=== PATIENT | female | born 1960 ===

== ENCOUNTER 2022-12-18 10:32 | Day surgery (SDC) | payer BC, SELFPAY ==
[2022-12-18] VITALS (14 sets, daily range): BP systolic 108–128; BP diastolic 69–78; PULSE 62–72; RESP 16; TEMP 36.2–36.6; O2SAT 93–100; BMI 28.3
--- NOTE | 2022-12-18 11:08 | W.ANESCHARGE ---
Anesthesia Charges Start Date/Time Anesthesia Start Date: 12/18/22 Anesthesia Start Time: 12:11 Stop Date/Time Anesthesia Stop Date: 12/18/22 Anesthesia Stop Time: 13:13
[2022-12-18] MEDS: OXYMETAZOLINE 0.05% NASAL SPRAY 2 SPRAY NOSTRIL-B (11:17)
[2022-12-18] MEDS: LACTATED RINGERS 1000 ML 1,000 ML 100 ML IV (11:23)
[2022-12-18] MEDS: SODIUM CHLORIDE 0.9 % (FLUSH) 10 ML SYRINGE IVF (11:24)
[2022-12-18] MEDS: COCAINE HCL 4 % 4 ML SOLUTION NOSTRIL-B (12:25)
[2022-12-18] MEDS: BUPIVACAINE 0.5%/EPINEPHRINE 0.9 MG (30.9 ML) INJECTION (12:25)
[2022-12-18] MEDS: AYR SALINE NASAL GEL 1 APPLIC NOSTRIL-B (12:41)
[2022-12-18] MEDS: MUPIROCIN 1 GM PACKET 1 APPLIC TOPICAL (12:57)
--- NOTE | 2022-12-18 13:05 | W.PM.ENTPROC ---
Procedure Note Date of procedure: 12/18/22 Procedure: Preoperative diagnosis subcutaneous left nasal dorsal lesion probable cyst, nasal obstruction, deviated septum, inferior turbinate hypertrophy Postoperative diagnosis same Procedure excision nasal dorsal subcutaneous lesion with layered closure (excision length 1.3 cm), septoplasty, submucous partial resection inferior turbinates Under general endotracheal anesthesia patient was prepped and draped in usual fashion. The nasal dorsal lesion of an marked preoperatively. This was then prepped and draped. The area surrounding lesion was injected with a total of 1 mL of 1% lidocaine 1 100,000 adrenaline. Elliptical incision excision was then done including the subcutaneous mass which was appeared to be a very small cyst. The wound edges were then undermined and closed in a layered fashion with 4-0 chromic suture in the subcutaneous layer and interrupted 6 0 nylon in the skin. Steri tape and Band-Aid were applied. The nose was decongested and injected and a right hemitransfixion incision was made. The left anterior and posterior tunnels were created. Right anterior and posterior tunnels were created. A vertical incision was made cartilage from bone the posterior deflected portion of septal bone was resected a large piece was trimmed and returned the posterior intraseptal space. There was a large right premaxillary wing that was infractured and remained midline. The hemitransfixion was closed with 2 4-0 chromic sutures. A stab incision was made in the anterior left inferior turbinate a tunnel created with a Doddridge dissector. The Lenka forceps was used to perform a conservative anterior submucous resection and the Coblation was used for hemostasis and to cauterize intramurally along the inferior 10%. This was repeated on the right side in identical fashion. Silastic stents were secured on either side the septum with a 3-0 nylon. A Merocel pack was trimmed lengthwise and placed above the stents on each side to maintain positioning and for hemostasis. The patient procedure well was taken recovery in satisfactory condition. Blood loss was less than 25 mL. Surgeon: Karan Burgess MD
--- NOTE | 2022-12-18 13:14 | W.ANESCHARGE ---
Anesthesia Charges Start Date/Time Anesthesia Start Date: 12/18/22 Anesthesia Start Time: 12:11 Stop Date/Time Anesthesia Stop Date: 12/18/22 Anesthesia Stop Time: 13:13
[2022-12-18] MEDS: IBUPROFEN 200 MG TABLET PO (14:38)
== END 2022-12-18 15:26 | disposition home or self-care (01) ==
LOC: OR 10:34
PROVIDERS: PCP Otolaryngology; Visit Provider Otolaryngology
PROC: (CPT 30520; principal; 2022-12-18 11:45)
PROC: (CPT 30520; 2022-12-18 11:45)
DX: J34.2 Deviated nasal septum (principal); J34.3 Hypertrophy of nasal turbinates; J34.89 Other specified disorders of nose and nasal sinuses
CPT/HCPCS: 30520; 30140; 11443; 12051; 00160; 88305; A9270; J0330; J2250; J2370; J2704; J3010; J7120